=== PATIENT | female | born 1940 | race Caucasian/White ===

== ENCOUNTER 2018-12-18 16:58 | Inpatient (IN) ==
[2018-12-18 17:32] LABS: ALLEN TEST YES; BE -1.9 mmoll (-3.0-3.0); BLOOD TYPE ARTERIAL; HCO3-(ACT) 23.3 mmoll (20.0-26.0); METHB 0.8 % (0.0-1.5); O2(CT) 17.5 mL/dL (15.0-23.0); O2HB 93.5 % (95.0-99.0); PCO2(98.6) 35 mmHg (35-45); PO2(98.6) 69 mmHg (60-100); SAMPLE BLOOD; SAO2 96.1 % (95.0-100.0); THB 13.3 g/dL (11.5-17.4); pH(98.6) 7.41 (7.35-7.45)
[2018-12-18 17:34] LABS: MODALITY ROOM AIR
[2018-12-18 17:43] LABS: BASO# 0.03 X1000 (0.0-0.2); BASO% 0.3 % (0.0-0.8); HEMATOCRIT 43.2 % (37.0-47.0); HEMOGLOBIN 13.6 g/dL (12.0-16.0); IMM GRAN# 0.02 X1000 (0.0-0.04); IMM GRAN% 0.2 % (0.0-0.5); LYMPH# 1.07 X1000 (1.2-3.4); LYMPH% 10.7 % (20.5-51.1); MCH 28.7 PG (27-31); MCHC 31.5 g/dL (33-37); MCV 91.1 FL (81-99); MONO# 0.51 X1000 (0.11-0.59); MONO% 5.1 % (1.7-9.3); MPV 11.7 FL (7.4-10.4); NEUT# 8.21 X1000 (1.4-6.5); NEUT% 81.7 % (42.2-75.2); PLT 244 X1000 (130-400); RBC 4.74 XMIL (4.2-5.4); RDW 15.2 % (11.5-14.5); WBC 10.04 X1000 (4.8-10.8)
[2018-12-18 18:03] LABS: AGAP 14; ALB/GLOB RATIO 1.7; ALBUMIN 4.7 g/dL (3.5-5.0); ALKALINE PHOSPHATASE 150 U/L (32-104); BUN 13 mg/dL (8-22); CALCIUM 10.7 mg/dL (8.8-10.2); CHLORIDE 105 mmol/L (98-107); CK PROFILE 67 U/L (24-173); COSMO 286; CREATININE 0.8 mg/dL (0.5-0.9); ESTIMATED GFR > 60; GLUCOSE 109 mg/dL (70-104); GOT 32 U/L (10-30); GPT 29 U/L (10-36); POTASSIUM 4.7 mmol/L (3.5-5.1); SODIUM 143 mmol/L (136-145); TCO2 24 mmol/L (25-35); TOTAL BILIRUBIN 0.62 mg/dL (0.20-1.00); TOTAL PROTEIN 7.5 g/dL (6.3-8.3)
--- NOTE | 2018-12-18 18:49 | Diag Imaging Result Doc PS360 ---
EXAM: CHEST-2 VIEWS INDICATION: chf TECHNIQUE: 2 views COMPARISON: None. FINDINGS: There is blunting of the left costophrenic angle suggesting a tiny effusion versus pleural scarring. There are also linear densities at the left lung base suggesting atelectasis versus mild scarring. The lungs are hyperinflated suggesting likely COPD. There is cardiomegaly. Central vasculature is unremarkable. IMPRESSION: 1.Cardiomegaly. 2.Likely a small left effusion with adjacent atelectasis and/or scarring. 3.Suggestion of COPD. Electronically signed by Chas Hickman 12/18/2018 6:46 PM
[2018-12-18] MEDS: LOPRESSOR PO SCH (21:00)
[2018-12-19] MEDS: SYNTHROID PO SCH (06:00)
--- NOTE | 2018-12-19 08:15 | EKG Report ---
Test Performed on : 12/18/2018 5:44:52 PM Test Reason : afib Blood Pressure : / mmHG Vent. Rate : 122 BPM Atrial Rate : 131 BPM P-R Int : 000 ms QRS Dur : 120 ms QT Int : 364 ms P-R-T Axes : 000 043 107 degrees QTc Int : 518 ms Atrial fibrillation. with rapid ventricular response. Low voltage QRS Septal infarct (cited on or before 23-MAY-2013) Abnormal ECG When compared with ECG of 23-MAY-2013 13:56, Atrial fibrillation. has replaced Sinus rhythm. Vent. rate has increased BY 58 BPM Unconfirmed Result
[2018-12-19] MEDS ORDERED: CARDIZEM IV ONE (08:26)
--- NOTE | 2018-12-19 09:08 | HISTORY AND PHYSICAL ---
HISTORY OF PRESENT ILLNESS: Ms. Kilgore who is a 78-year-old white female, comes to the office with history of shortness of breath. She was found to have atrial fibrillation which is of new onset. She says for the last month and a half, every time she walks a little more than half a block, she gives out and gets short of breath. She has a known case of hypertension and has been on Norvasc 5 mg for a long time and blood pressure is being controlled at this time. When she came to the office, she had atrial fibrillation which was of new onset. She denied having any chest pains. PAST SURGICAL HISTORY: Reveals history of hysterectomy, tonsillectomy, and cataract surgery. MEDICATIONS: Include: 1. Norvasc 5 mg. 2. Levothyroxine 100 mcg daily. SOCIAL HISTORY: She denies a history of smoking or alcoholism. ALLERGIES: She is allergic to amoxicillin. She says she tries to avoid fish or sea food. REVIEW OF SYSTEMS: Other than weakness and shortness of breath, it is noncontributory. PHYSICAL EXAMINATION: VITAL SIGNS: Reveal temperature normal, pulse 91 to 100 per minute, irregularly irregular, respiratory rate 18 per minute, blood pressure 125/77. HEAD: Normocephalic. Pupils PERRLA. Fundus examination not done. NECK: Supple. JVP normal. ENT: Unremarkable. There is no evidence of lymphadenopathy, thyroid enlargement, calf tenderness, anemia, cyanosis or clubbing. She has bilateral pitting edema on both legs. BREAST: Normal. CHEST: Normal inspection. LUNGS: Reveal bilateral basal rales. PMI in the 6th intercostal space is outside the midclavicular line. HEART: Sounds normal. No murmur, gallop or rub noted. ABDOMEN: Nondistended.Hernial]orifices normal. No guarding, rigidity, free fluid, masses, or organomegaly. Bowel sounds normal. RECTAL: Deferred. CENTRAL NERVOUS SYSTEM: Higher functions normal. Cranial nerves normal. MOTOR AND SENSORY SYSTEM: Unremarkable. Deep tendon reflexes normal. Plantars downgoing. SPINE: Normal for age. No cerebellar signs or signs of meningeal irritation. LOCOMOTOR: Unremarkable. SKIN: Unremarkable. IMPRESSION: The patient is in congestive heart failure. She has new onset atrial fibrillation. PLAN: Plan to start with IV Lasix. Her O2 saturation was 89 in the office. We will try to get oxygen started and get a Cardiology consultation. cc: Isak Macario MD MTDD
--- NOTE | 2018-12-19 09:25 | PROGRESS NOTE ---
DATE: 12/19/2018 SUBJECTIVE: Ms Kilgore was admitted yesterday with a history of shortness of breath. She has congestive heart failure as well as new onset atrial fibrillation. At present, she does not have any symptoms to offer except for some shortness of breath. Heart rate went up to around 120 to 140 at times. We will keep her on Cardizem protocol. IMPRESSION: Congestive heart failure, atrial fibrillation of new onset. Hypothyroidism, patient on levothyroxine supplement. -5 cc: Isak Macario MD
[2018-12-19] MEDS: LASIX IV SCH (10:17)
[2018-12-19] MEDS: LOPRESSOR PO SCH ×2 (10:17→20:49)
[2018-12-19] MEDS: NORVASC PO SCH (10:17)
[2018-12-19] MEDS: CARDIZEM 125/NS 125 MG/125 ML IVPB IV SCH (10:18)
--- NOTE | 2018-12-19 11:02 | EKG Report ---
Test Performed on : 12/19/2018 10:47:15 AM Test Reason : afib Blood Pressure : / mmHG Vent. Rate : 082 BPM Atrial Rate : 090 BPM P-R Int : 000 ms QRS Dur : 134 ms QT Int : 430 ms P-R-T Axes : 000 -36 100 degrees QTc Int : 502 ms Atrial fibrillation. Left axis deviation Left bundle branch block Abnormal ECG When compared with ECG of 18-DEC-2018 17:44, (Unconfirmed) Vent. rate has decreased BY 40 BPM Left bundle branch block is now present Criteria for Septal infarct are no longer present Unconfirmed Result
[2018-12-19] MEDS: ELIQUIS PO SCH ×2 (12:19→20:49)
--- NOTE | 2018-12-19 14:40 | CARDIOLOGY CONSULTATION ---
DATE: 12/19/2018 REQUESTING PHYSICIAN: Consultation requested by Dr. Macario. REASON FOR CONSULTATION: Patient with paroxysmal atrial fibrillation. CHIEF COMPLAINT: Palpitations, dyspnea, swelling. HISTORY: Ms. Kilgore is a very pleasant, 78-year-old, female who actually looks younger than her stated age. The patient states that for the past 2 to 3 months, she has been experiencing increasing fatigue, dyspnea, palpitations, and lately swelling of her legs. The patient went to Dr. Macario's office and she was found in atrial fibrillation with a rapid response, and admission to the hospital was recommended. She has been put on IV Cardizem. Her heart rate is better controlled now. She has also been put on diuretics. The patient denies having any chest pain. PAST MEDICAL HISTORY: Positive for hypertension and hypothyroidism. She has been diagnosed with obstructive sleep apnea. She is currently using a CPAP. SURGICAL HISTORY: Hysterectomy, tonsillectomy. She has had cataract surgery. SOCIAL HISTORY: She has been for 60 years. Her is at the bedside. They have 4 grown up children. She lives at home with her . She has to walk with a cane sometimes. Not a smoker. Not a drinker. FAMILY HISTORY: Noncontributory for coronary or heart disease in the immediate family. ALLERGIES: She is allergic to shellfish and ocean fish in general, and amoxicillin. HOME MEDICATIONS: At the time of admission, amlodipine, levothyroxine, Naprosyn. REVIEW OF SYSTEMS: Generally, she has been healthy up until the onset of symptoms. No significant positives in the multiple systems checked. PHYSICAL EXAMINATION: Vital Signs: Blood pressure is 112/65, temperature 97.4 degrees, pulse 76, respirations 16. General: The patient is awake, alert, oriented, in no distress. HEENT: Unremarkable. Chest: Clear to auscultation and percussion. Heart: Heart sounds are irregularly irregular. No gallop or murmur. Abdomen: Nontender. Not obese. No hepatomegaly. Bowel sounds normal. No bruits. Extremities: Showed normal pulses with trace edema. Neurologic Examination: Nonfocal. Moves 4 extremities. BLOOD WORK: Hemoglobin is 13.6, hematocrit 43.2, white cell count 10,040. Sodium is 143, potassium 4.7, BUN 13, creatinine 0.8. ProBNP 3086. Alkaline phosphatase is 150. Glucose 109, calcium 10.7. TSH 1.16. ASSESSMENT: In summary, this patient has: 1. Atrial fibrillation with rapid response. This is seemingly of new onset. 2. History of sleep apnea syndrome. 3. History of hypertension. 4. Hypothyroidism. 5. Suspected CHF systolic probably due to persistent tachycardia. RECOMMENDATIONS: We will treat the patient conservatively at this time with anticoagulation and rate control. We will consider trying to restore sinus rhythm once the patient is euvolemic. Her chest x-ray from initial presentation showed cardiomegaly with a likely small left effusion with adjacent atelectasis or scarring, and suggestion of COPD. I would probably let her get to a truly euvolemic state before pursuing cardioversion. Her ECG of note shows atrial fibrillation with a nonspecific intraventricular conduction delay or left bundle branch block type of pattern. At some point, she will probably require a Lexiscan stress test for evaluation of coronary heart disease. I would not do that yet. An echocardiogram has been performed this morning. I have to review the results and further advice will be forthcoming. Thank you again for the opportunity to participate in this patient's evaluation. cc: MD Isak Fuentes MD [facility]OSPITALRenetta
--- NOTE | 2018-12-19 15:38 | ECHO REPORT ---
ORDER DATE: 12/19/2018 ECHOCARDIOGRAPHIC MEASUREMENTS: Interventricular septum 1.1 cm. Left ventricular posterior wall 0.8 cm. Diastolic diameter 5.1 cm. Left ventricular systolic diameter 4.6 cm. Left atrium 4.3 cm. Aorta 3.7 cm. SUMMARY OF THE 2-DIMENSIONAL IMAGING: Normal left ventricular cavity size. Estimated ejection fraction of 25%. There is diastolic dysfunction. The aortic valve leaflets are trileaflet. Mitral valve is normal. Tricuspid valve is normal. Pulmonic valve is normal. There is no aortic stenosis or regurgitation. There is moderate mitral regurgitation. There is mild tricuspid regurgitation. Peak velocity across the tricuspid valve was 3 m/sec. Pulmonary artery systolic pressure of 50 mmHg. There is left atrial enlargement. There is no pericardial effusion or obvious intracardiac mass or thrombus seen. cc: MD Isak Barron MD
[2018-12-20 05:51] LABS: AGAP 9; BUN 16 mg/dL (8-22); CALCIUM 9.3 mg/dL (8.8-10.2); CHLORIDE 109 mmol/L (98-107); COSMO 284; CREATININE 0.8 mg/dL (0.5-0.9); ESTIMATED GFR > 60; GLUCOSE 88 mg/dL (70-104); MAGNESIUM 2.1 mg/dL (1.5-2.7); POTASSIUM 3.8 mmol/L (3.5-5.1); SODIUM 142 mmol/L (136-145); TCO2 24 mmol/L (25-35)
[2018-12-20] MEDS: SYNTHROID PO SCH (06:03)
--- NOTE | 2018-12-20 07:49 | EKG Report ---
Test Performed on : 12/20/2018 07:24:31 AM Test Reason : afib Blood Pressure : / mmHG Vent. Rate : 061 BPM Atrial Rate : 081 BPM P-R Int : 000 ms QRS Dur : 134 ms QT Int : 492 ms P-R-T Axes : 000 -46 122 degrees QTc Int : 495 ms Atrial fibrillation. Left axis deviation Left bundle branch block Abnormal ECG When compared with ECG of 19-DEC-2018 10:47, No significant change was found Unconfirmed Result
--- NOTE | 2018-12-20 09:10 | CARDIOLOGY PROGRESS NOTE ---
DATE: 12/20/2018 CHIEF COMPLAINT: Dyspnea with irregular heartbeats. Palpitations. SUBJECTIVE: Ms. Kilgore is feeling better today. She is not having any chest pain. Her rate appears to be better controlled. EKG done this morning shows atrial fibrillation. Rate is 61 beats per minute. She has a nonspecific IVCD with left axis type of pattern. OBJECTIVE: Vital Signs: Blood pressure right now is 107/59, temperature 98.3, and respirations 15. General: She is awake, alert, and in no distress. HEENT: Unremarkable. Chest: Diminished breath sounds in the left base. Cardiac: Heart sounds are irregularly irregular. Abdomen: The abdomen is nontender. Extremities: The extremities show trace edema. Neurological: She follows commands and moves all extremities. LABORATORY DATA: Blood work shows a sodium of 142, potassium 3.8, BUN 16, and creatinine 0.8. TSH is 1.16. IMPRESSION: 1. Patient who presented with atrial fibrillation with a rapid response. 2. Congestive heart failure. Based on echocardiographic study this is systolic and probably acute on chronic. This may be tachycardia related. 3. Abnormal EKG with an intraventricular conduction delay and left axis deviation. This could be the result of significant silent coronary atherosclerosis or some type of cardiomyopathy. 4. Patient with a history of sleep apnea syndrome. 5. History of hypertension. RECOMMENDATIONS: At this time we are going to treat this patient as a case of new onset congestive heart failure. We are going to put her on MARKUS inhibitors, captopril, digoxin low dose, and spironolactone. We will keep her anticoagulated. Her risk for a stroke is very high because of the poor LV function. I will probably allow her to stabilize in the hospital, discharge her home, and then we will bring her back to the office and reassess her and eventually we will probably pursue cardioversion. At this time because of the active congestive heart failure it may be best to wait until she stabilizes with medical therapy. We will be following her and thank you again for the opportunity to participate in her evaluation. I am going to get a CT of the thorax because of the abnormal chest x-ray and also to evaluate for the possibility of calcification of the coronary arteries. cc: MD Isak Fuentes MD
--- NOTE | 2018-12-20 09:24 | PROGRESS NOTE ---
DATE: 12/20/2018 Ms. Kilgore continues to be in atrial fibrillation. She has a left bundle branch block. She has mild congestive heart failure. Ejection fraction was low, according to the echocardiogram. She has enlargement of the left atrium as well as left ventricle and diastolic heart failure. Overall condition is unchanged. She is on a Cardizem drip. She is going to start walking some in the room today. Her lungs sound clear. Her edema has improved in the legs. IMPRESSION: 1. Congestive heart failure. 2. Atrial fibrillation. 3. Hypertensive heart disease. -7 cc: Isak Macario MD
[2018-12-20] MEDS: CARDIZEM 125/NS 125 MG/125 ML IVPB IV SCH (09:31)
[2018-12-20] MEDS: ALDACTONE PO SCH (09:32)
[2018-12-20] MEDS: CAPOTEN PO SCH ×3 (09:32→20:01)
[2018-12-20] MEDS: LASIX IV SCH (09:33)
[2018-12-20] MEDS: NORVASC PO SCH (09:33)
[2018-12-20] MEDS: LANOXIN PO SCH (09:33)
[2018-12-20] MEDS: ELIQUIS PO SCH ×2 (09:33→20:01)
[2018-12-20] MEDS: LOPRESSOR PO SCH ×2 (09:33→20:01)
--- NOTE | 2018-12-20 10:06 | Diag Imaging Result Doc PS360 ---
EXAM: CT THORAX W/O CONTRAST 12/20/2018 HISTORY: abnormal chest X Ray TECHNIQUE: This exam was performed using automated exposure control, adjustment of mA or kV according to patient size, and/or use of iterative reconstruction technique. COMMENT: There are no previous studies available for comparison. There bilateral pleural effusions. There is no evidence of significant adenopathy. There are calcifications throughout the left coronary artery. There is a small pericardial effusion. There are apparent parapelvic cysts present in the left kidney. There is some apparent fibrosis in the right lower lobe adjacent to the spine. Some dependent atelectasis is present bilaterally. There are spondylotic changes in the lower cervical and thoracic spine. The regional skeleton is otherwise apparently intact. IMPRESSION: Bilateral pleural effusions. Coronary atherosclerosis. Electronically signed by Deion Kellogg 12/20/2018 10:04 AM
[2018-12-21] MEDS: CAPOTEN PO SCH (05:04)
[2018-12-21] MEDS: SYNTHROID PO SCH (06:10)
[2018-12-21] MEDS: ALDACTONE PO SCH (08:54)
[2018-12-21] MEDS: LASIX IV SCH (08:54)
[2018-12-21] MEDS: NORVASC PO SCH (08:54)
[2018-12-21] MEDS: ELIQUIS PO SCH (08:54)
[2018-12-21] MEDS: LOPRESSOR PO SCH (08:54)
[2018-12-21] MEDS: LANOXIN PO SCH (08:54)
--- NOTE | 2018-12-21 12:23 | PROGRESS NOTE ---
DATE: 12/21/2018 SUBJECTIVE: Ms. Kilgore is being seen by the guest relations manager for atrial fibrillation and congestive heart failure. She had a CT scan of the chest done yesterday which revealed the presence of bilateral pleural effusion, mild cardiomegaly, some pericardial effusion, and coronary artery calcification with pulmonary fibrosis. She was placed on Lanoxin as well as well as a Captopril by Dr. Avilez. Depending on what he plans to do, will decide about her discharge. Until then, we will keep her in the hospital. -0 cc: Isak Macario MD
[2018-12-21 15:58] VITALS: BP 103/53
[2018-12-21] MEDS ORDERED: CAPOTEN PO SCH (21:00)
[2018-12-22] MEDS ORDERED: LASIX PO SCH (09:00)
--- NOTE | 2018-12-24 19:03 | DISCHARGE SUMMARY ---
ADMISSION DATE: 12/18/2018 DISCHARGE DATE: 12/21/2018 BRIEF HISTORY: Ms. edgar is a 78-year-old white female who was admitted for new onset atrial fibrillation and congestive heart failure. Laboratory data in the hospital, chest x-ray revealed cardiomegaly. A small left-sided effusion was noted. Suggestion of COPD was also noted. She had a CT scan of the chest, which revealed bilateral pleural effusion, mild pericardial effusion. Coronary atherosclerosis was noted. No evidence of adenopathy noted. Small pulmonary fibrosis was also noted in the right lower lobe. She had EKG which showed atrial fibrillation, left axis deviation LBBBpattern present. Echocardiogram was done which revealed left atrial enlargement. The left ejection fraction was only 25%. There was diastolic dysfunction. The patient had moderate mitral regurgitation. There was mild tricuspid regurgitation. No pericardial effusion was seen on echo. COURSE IN THE HOSPITAL: She was seen and given IV Lasix. Telemetry was continued. She was given oxygen. Cardiology consultation was obtained with Dr. Avilez, who later on put her on Lanoxin as well as Lopressor and captopril. He also gave her Aldactone at the time of discharge. she was on both Lopressor as well as captopril and was getting Lasix as well as spironolactone. She will be seen in the office in about 7 to 10 days. We will repeat an EKG at that time. She is to see Dr. Avilez who is going to do the cardioversion as an outpatient. FINAL DIAGNOSIS: New onset atrial fibrillation, congestive heart failure. The patient had acute diastolic dysfunction. cc: Isak Macario MD [facility]ITALSRenetta
== END 2018-12-21 17:28 | disposition home or self-care (01) | DRG 308 ==
LOC: EDIPHOLD 17:03 → 3S 12-19 01:10
PROVIDERS: ADMIT Internal Medicine; ATTEND Internal Medicine
CPT/HCPCS: 71020; 71046; 71250; 80048; 80053; 82550; 82805; 83735; 83880; 84443; 84484; 85025; 93005; 93010; 93306; A9270; J1940